=== PATIENT | female | born 1970 | race Caucasian/White ===

== ENCOUNTER 2019-11-08 12:19 | Emergency (ER) | payer SELFPAY ==
[2019-11-08 13:10] LABS: BASOPHILS # (AUTO) 0.1 10^3/uL (0.0-0.1); BASOPHILS % (AUTO) 0.9 %; EOSINOPHILS # (AUTO) 0.2 10^3/uL (0.0-0.7); EOSINOPHILS % (AUTO) 2.4 %; HGB - HEMOGLOBIN 14.5 g/dL (12.0-16.0); LYMPHOCYTES % (AUTO) 29.4 %; MEAN CORPUSCULAR HEMOGLOBIN 32.5 pg (27.0-31.0); MEAN CORPUSCULAR HGB CONC 33.8 g/dL (32.0-36.0); MEAN CORPUSCULAR VOLUME 96.2 fL (81.0-99.0); MEAN PLATELET VOLUME 12.1 fL (7.9-10.8); MONOCYTES # (AUTO) 0.5 10^3/uL (0.0-1.0); MONOCYTES % (AUTO) 8.1 %; NEUTROPHILS # (AUTO) 3.9 10^3/uL (1.5-6.6); NEUTROPHILS % (AUTO) 58.9 %; PLT - PLATELET COUNT 153 10^3/uL (130-450); RED BLOOD COUNT 4.46 10^6/uL (4.20-5.40); RED CELL DISTRIBUTION WIDTH 12.3 % (12.0-15.0); WHITE BLOOD COUNT 6.7 x10^3/uL (4.8-10.8)
[2019-11-08 13:11] LABS: BILIRUBIN,URINE NEGATIVE (NEGATIVE); GLUCOSE, URINE (UA) NEGATIVE (NEGATIVE); KETONES,URINE (UA) NEGATIVE (NEGATIVE); LEUKOCYTE ESTERASE, URINE NEGATIVE (NEGATIVE); NITRITE,URINE NEGATIVE (NEGATIVE); OCCULT BLOOD,URINE NEGATIVE (NEGATIVE); PROTEIN,URINE NEGATIVE (NEGATIVE); UROBILINOGEN,URINE 0.2 (NORMAL) E.U./dL (NORMAL)
[2019-11-08 13:17] LABS: CLARITY,URINE CLEAR (CLEAR)
--- NOTE | 2019-11-08 13:23 | ED Physician Documentation ---
PD HPI ABD PAIN - Stated complaint Stated Complaint: LT SIDE FLANK PX, ABD PX - Chief complaint Chief Complaint: Abd Pain - History obtained from History obtained from: Patient - History of Present Illness Timing - onset: How many months ago (5) Timing - details: Gradual onset, Still present, Waxing and waning Quality: Cramping, Aching, Sharp, Fullness/distended, Pain Location: RUQ Radiation: Right flank Improved by: Laying still Worsened by: Moving, Breathing, Position, Palpation Associated symptoms: Vomiting, Diarrhea. No: Fever Similar symptoms before: Has not had sx before Recently seen: Not recently seen - Additional information Additional information: 49-year-old female complains of pain in the right flank area that is been present since June of this year. She states she has had recurrence of symptoms that come and go and progressively have worsened. She is having trouble rolling over in bed at night she feels full inside but she is continuing to be able to eat and she has had normal bowel movements. She does recall 2 episodes of abdominal pain associated with all of this, that resolved after some diarrhea. She is currently not having symptoms of diarrhea or abdominal pain. She is not having nausea. She has tried some ibuprofen and some Tylenol which helps somewhat. She does a lot of heavy lifting at work and has had increase her hours recently. Review of Systems Constitutional: denies: Fever Eyes: denies: Decreased vision Ears: denies: Ear pain Nose: denies: Congestion Throat: denies: Sore throat Cardiac: denies: Chest pain / pressure, Palpitations Respiratory: denies: Dyspnea, Cough GI: reports: Abdominal Pain, Abdominal Swelling, Vomiting, Diarrhea : denies: Dysuria, Frequency Skin: denies: Rash Musculoskeletal: reports: Back pain. denies: Neck pain, Extremity pain PD PAST MEDICAL HISTORY - Past Medical History Cardiovascular: None Endocrine/Autoimmune: None - Past Surgical History Past Surgical History: No - Present Medications Home Medications: Ambulatory Orders Medication Instructions Recorded Confirmed Cephalexin [Keflex] 500 mg PO QID #40 capsule 10/26/15 Cyclobenzaprine [Flexeril] 10 mg PO TID PRN #20 tablet 11/08/19 Oxycodone HCl/Acetaminophen 1 - 2 each PO Q6H PRN #14 tablet 11/08/19 [Percocet 5-325 mg Tablet] - Allergies Allergies/Adverse Reactions: Allergies Allergy/AdvReac Type Severity Reaction Status Date / Time No Known Drug Allergies Allergy Verified 11/08/19 12:30 - Social History Does the pt smoke?: No Smoking Status: Never smoker Does the pt drink ETOH?: No ETOH Use: Wine Does the pt have substance abuse?: Yes Substance Use and Type: Marijuana - Immunizations Immunizations are current?: Yes - POLST Patient has POLST: No PD ED PE NORMAL - General General: Alert and oriented X 3, Well developed/nourished, Other (Appears angry and anxious ) - HEENT HEENT: Atraumatic, PERRL, EOMI - Neck Neck: Supple, no meningeal sign, No bony TTP - Cardiac Cardiac: RRR, No murmur - Respiratory Respiratory: No respiratory distress, Clear bilaterally - Abdomen Abdomen: Normal bowel sounds, Soft, No organomegaly, Other (There is RUQ pain to palpation as well as left flank pain to bimanual palpation of the right kidney as well as pain in the lattisimus extending from the lower ribs to the SI joint on the right. 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, No motor deficit, No sensory deficit, Normal speech Eye Opening: Spontaneous Motor: Obeys Commands Verbal: Oriented GCS Score: 15 - Psych Psych: Normal mood, Normal affect Results - Vitals Vitals: Vital Signs - 24 hr 11/08/19 11/08/19 11/08/19 12:22 12:46 14:25 Temperature 36.8 C Heart Rate 86 80 71 Respiratory 18 20 18 Rate Blood Pressure 152/100 H 137/84 H 129/90 H O2 Saturation 100 100 100 Oxygen O2 Source Room air - Labs Labs: Laboratory Tests 11/08/19 11/08/19 11/08/19 12:36 12:36 12:54 WBC 6.7 RBC 4.46 Hgb 14.5 Hct 42.9 MCV 96.2 MCH 32.5 H MCHC 33.8 RDW 12.3 Plt Count 153 MPV 12.1 H Neut # (Auto) 3.9 Lymph # (Auto) 2.0 [place] # (Auto) 0.5 Eos # (Auto) 0.2 Baso # (Auto) 0.1 Absolute Nucleated RBC 0.00 Nucleated RBC % 0.0 Sodium Potassium Chloride Carbon Dioxide Anion Gap BUN Creatinine Estimated GFR (MDRD) Glucose Calcium Total Bilirubin AST ALT Alkaline Phosphatase Total Protein Albumin Globulin Albumin/Globulin Ratio Lipase Urine Color YELLOW Urine Clarity CLEAR Urine pH 7.0 Ur Specific [place] 1.020 1.020 Urine Protein NEGATIVE Urine Glucose (UA) NEGATIVE Urine Ketones NEGATIVE Urine Occult Blood NEGATIVE Urine Nitrite NEGATIVE Urine Bilirubin NEGATIVE Urine Urobilinogen 0.2 (NORMAL) Ur Leukocyte Esterase NEGATIVE Ur Microscopic Review NOT INDICATED Urine Culture Comments NOT INDICATED Urine HCG, Qual NEGATIVE 11/08/19 12:54 WBC RBC Hgb Hct MCV MCH MCHC RDW Plt Count MPV Neut # (Auto) Lymph # (Auto) [place] # (Auto) Eos # (Auto) Baso # (Auto) Absolute Nucleated RBC Nucleated RBC % Sodium 135 Potassium 3.8 Chloride 100 L Carbon Dioxide 26 Anion Gap 9.0 BUN 9 Creatinine 0.7 Estimated GFR (MDRD) 90 Glucose 103 H Calcium 9.0 Total Bilirubin 1.1 H AST 26 ALT 27 Alkaline Phosphatase 54 Total Protein 7.6 Albumin 4.1 Globulin 3.5 Albumin/Globulin Ratio 1.2 Lipase 21 L Urine Color Urine Clarity Urine pH Ur Specific [place] Urine Protein Urine Glucose (UA) Urine Ketones Urine Occult Blood Urine Nitrite Urine Bilirubin Urine Urobilinogen Ur Leukocyte Esterase Ur Microscopic Review Urine Culture Comments Urine HCG, Qual - Rads (name of study) CT ab/pel w Radiology: Prelim report reviewed (Impression: 1. Appendix is unremarkable. 2. No visualized nephro or ureteral lithiasis. 3. No visualized inflammatory change within the abdomen or pelvis.), EMP read indepedently, See rad report Procedures - Bedside sono Bedside sono by EMP: With use of bedside ultrasound the gallbladder is imaged there are no obvious stones the wall is not thickened and there is no pericholecystic fluid. The general area is tender to sonographic palpation. Examination of the right kidney is unsatisfactory secondary to body habitus and motion artifact - IVC sono (time) 1320 Bedside IVC sono: IVC measures (cm) (1.67), IVC collapsed c insp (cm) (1.09), Euvolemia PD MEDICAL DECISION MAKING - ED course Complexity details: reviewed results, re-evaluated patient, considered differential, d/w patient ED course: 49-year-old female with months of right flank pain related to movement has no abnormalities on her CT scan, blood work or urinalysis.The patient is treated here in the emergency department with 10 mg of dexamethasone and 30 mg of Toradol intravenously and she has some good relief of her flank pain. She is moving about on the bed much more easily. I have reassured the patient there is nothing diaboic going on inside of the abdomen and this should resolve with ice stretch and time and may require physical therapy Departure - Departure Disposition: 01 Home, Self Care Clinical Impression: Flank pain, Spasm of muscle, back Condition: Stable Instructions: ED Strain Abdominal Muscle, ED Spasm Back No Trauma Follow-Up: [facility] [Provider Group] Prescriptions: Cyclobenzaprine [Flexeril] 10 mg PO TID PRN #20 tablet PRN Reason: Spasms Oxycodone HCl/Acetaminophen [Percocet 5-325 mg Tablet] 1 - 2 each PO Q6H PRN #14 tablet PRN Reason: pain
[2019-11-08 13:27] LABS: ALBUMIN 4.1 g/dL (3.2-5.5); ALBUMIN/GLOBULIN RATIO 1.2 (1.0-2.2); BILIRUBIN,TOTAL 1.1 mg/dL (0.2-1.0); CREATININE 0.7 mg/dL (0.4-1.0); TOTAL PROTEIN 7.6 g/dL (6.7-8.2)
[2019-11-08] MEDS ORDERED: DEXAMETHASONE 10 MG/ML VIAL IVP STA (13:30)
[2019-11-08] MEDS ORDERED: KETOROLAC 30 MG/ML VIAL IVP STA (13:30)
[2019-11-08 13:42] LABS: HCG UR QUAL NEGATIVE
[2019-11-08] MEDS ORDERED: IOVERSOL 320 100 ML VIAL IVP ONE ×2 (13:59→15:28)
--- NOTE | 2019-11-08 14:29 | CT Report ---
PROCEDURE: Abdomen/Pelvis W INDICATIONS: RIGHT FLANK PAIN CONTRAST: IV CONTRAST: Optiray 320 ml: 100 PO CONTRAST: *NO PO CONTRAST TECHNIQUE: After the administration of IV contrast, 5 mm thick sections acquired from the diaphragms to the symp hysis. 5 mm thick coronal and sagittal reformats were acquired. For radiation dose reduction, the f ollowing was used: automated exposure control, adjustment of mA and/or kV according to patient size. COMPARISON: None. FINDINGS: Image quality: Excellent. ABDOMEN: Lung bases: Lung bases are clear. Heart size is normal. Solid organs: Liver is borderline enlarged with steatosis. The spleen is normal in size and enhancem ent. Gallbladder is unremarkable Biliary system is non dilated. Pancreas enhances normally. No ad renal nodules. Kidneys demonstrate normal size and enhancement, without hydronephrosis. Peritoneum and bowel: Bowel loops demonstrate normal wall thickness and caliber. No free fluid or a ir. Appendix is unremarkable. Nodes and vessels: No retroperitoneal or mesenteric adenopathy by size criteria. Aorta and inferior vena cava are normal in size. Miscellaneous: No ventral hernias. PELVIS: Genitourinary: Bladder wall thickness is normal. Miscellaneous: No inguinal hernias or adenopathy. Bones: No suspicious bony lesions. No vertebral body compression fractures. IMPRESSION: 1. Appendix is unremarkable. 2. No visualized nephro or ureterolithiasis. 3. No visualized inflammatory change within the abdomen or pelvis. Reviewed by: Frances Persaud MD on 11/08/2019 2:27 PM PDT Approved by: Frances Persaud MD on 11/08/2019 2:27 PM PDT Station ID: [id number]
[2019-11-08 15:39] VITALS: BP 153/90
== END 2019-11-08 15:41 | disposition home or self-care (01) ==
LOC: ED 12:19
DX: R10.11 Right upper quadrant pain (principal); M62.830 Muscle spasm of back
CPT/HCPCS: 36415; 74177; 80053; 81003; 81025; 83690; 85025; 96374; 99284; Q9967; 81001; 87086

== ENCOUNTER 2021-02-12 16:04 | Outpatient (CLI) | payer BC ==
--- NOTE | 2021-02-12 16:33 | XRAY Report ---
PROCEDURE: Cervical Spine 2 View INDICATIONS: CERVICALGIA TECHNIQUE: 4 view(s) of the cervical spine were acquired. COMPARISON: None. FINDINGS: C-SPINE: No acute, displaced fracture or malalignment. Minimal grade 1 anterolisthesis at C3-4. The v ertebral body heights are maintained. Mild disc height loss at C4-5. Anterior endplate osteophytosis. SOFT TISSUES: No prevertebral soft tissue thickening. IMPRESSION: 1.No acute osseous abnormality of the cervical spine. Reviewed by: Bay Bertrand MD on 02/12/2021 4:31 PM [facility] Approved by: Bay Bertrand MD on 02/12/2021 4:31 PM [facility] Station ID: [id number]
== END 2021-02-12 16:05 | disposition home or self-care (01) ==
LOC: DI.S 16:04
PROVIDERS: ATTEND Internal Medicine
DX: M54.2 Cervicalgia (principal)

== ENCOUNTER 2021-04-14 08:00 | Outpatient (CLI) | payer OTHER, BC | END 2021-04-14 23:59 | LOC: LAB.S 08:00 | PROVIDERS: ATTEND Physician Assistant | DX: J06.9 Acute upper respiratory infection, unspecified (principal); Z20.822 Contact with and (suspected) exposure to COVID-19 ==

== ENCOUNTER 2021-04-28 12:54 | Emergency (ER) | payer BC, OTHER ==
[2021-04-28 13:06] VITALS: BP 138/97
[2021-04-28] MEDS ORDERED: cefTRIAXone 1 GM VIAL IM STA (13:46)
--- NOTE | 2021-04-28 13:50 | ED Physician Documentation ---
History of Present Illness - Stated complaint Stated Complaint: RT SIDE MOUTH SWELLING - Chief complaint Chief Complaint: Heent - History obtained from History obtained from: Patient - History of Present Illness Timing: How many weeks ago (1) Pain level max: 7 Pain level now: 6 - Additonal information Additional information: Patient is a 50-year-old female with right-sided upper dental pain. Ongoing for the past week. She was seen recently at the walk-in clinic and started on amoxicillin. She states that she is not improving. She has not yet contacted a dentist for an appointment. Worse with eating and drinking. Nothing makes it better. She is on naltrexone to help with alcohol cravings at home. Review of Systems Constitutional: denies: Fever, Chills Respiratory: denies: Cough GI: denies: Nausea, Vomiting, Diarrhea : denies: Dysuria, Now EGA Skin: denies: Rash PD PAST MEDICAL HISTORY - Past Medical History Past Medical History: Yes Cardiovascular: None Endocrine/Autoimmune: None Psych: Anxiety - Past Surgical History Past Surgical History: No - Present Medications Home Medications: Ambulatory Orders Medication Instructions Recorded Confirmed Amoxicillin 500 mg PO TID 04/28/21 04/28/21 Meloxicam [Mobic] 7.5 mg PO BID PRN #20 tablet 04/28/21 Naltrexone HCl 50 mg PO DAILY 04/28/21 04/28/21 Venlafaxine HCl [Effexor Xr] 150 mg PO DAILY 04/28/21 04/28/21 clindamycin HCL [Cleocin HCl] 300 mg PO Q6H #40 cap 04/28/21 - Allergies Allergies/Adverse Reactions: Allergies Allergy/AdvReac Type Severity Reaction Status Date / Time No Known Drug Allergies Allergy Verified 11/08/19 12:30 - Social History Does the pt smoke?: No Smoking Status: Never smoker Does the pt drink ETOH?: No Does the pt have substance abuse?: Yes - Immunizations Immunizations are current?: Yes - POLST Patient has POLST: No PD ED PE NORMAL - Vitals Vital signs reviewed: Yes - General General: Alert and oriented X 3, No acute distress, Well developed/nourished - HEENT HEENT: PERRL, Moist mucous membranes, Other (Diffuse dental caries, tender palpation right upper molar. No drainable abscess. No facial swelling. Normal phonation. No trismus) - Neck Neck: Supple, no meningeal sign, No adenopathy - Cardiac Cardiac: RRR, No murmur - Respiratory Respiratory: No respiratory distress, Clear bilaterally - Derm Derm: Warm and dry - Neuro Neuro: Alert and oriented X 3 - Psych Psych: Normal mood, Normal affect Results - Vitals Vitals: Vital Signs - 24 hr 04/28/21 12:59 Temperature 36.3 C L Heart Rate 95 Respiratory 16 Rate Blood Pressure 138/97 H O2 Saturation 99 Oxygen O2 Source Room air PD MEDICAL DECISION MAKING - ED course Complexity details: considered differential, d/w patient ED course: 50-year-old female with dental caries. We will change her antibiotic and see if this helps her. She is unable to take any narcotic pain medication secondary to the naltrexone. We will trial her on meloxicam. No drainable abscess. Recommend that she follow-up closely with a dentist. Given a dose of IM Rocephin here Patient counseled regarding signs and symptoms for which I believe and urgent re-evaluation would be necessary. Patient with good understanding of and agreement to plan and is comfortable going home at this time This document was made in part using voice recognition software. While efforts are made to proofread this document, sound alike and grammatical errors may occur. Departure - Departure Disposition: 01 Home, Self Care Clinical Impression: Dental caries Condition: Good Instructions: ED Cavity Dental Follow-Up: your,dentist this week [Other] Prescriptions: clindamycin HCL [Cleocin HCl] 300 mg PO Q6H #40 cap Meloxicam [Mobic] 7.5 mg PO BID PRN #20 tablet PRN Reason: Pain Comments: Take all antibiotics until gone. You need to follow-up with a dentist as soon as possible to have your tooth evaluated. Do not wait to make an appointment. Return if you worsen. [facility] Discharge Date/Time: 04/28/21 14:33
[2021-04-28] MEDS ORDERED: lidocaine 1% 20 ML MDV SUBQ ONE (13:53)
[2021-04-28] MEDS ORDERED: LIDOCAINE-MPF 1% 5 ML VIAL SUBQ ONE (15:00)
== END 2021-04-28 14:33 | disposition home or self-care (01) ==
LOC: ED 12:54
DX: K02.9 Dental caries, unspecified (principal)
CPT/HCPCS: 96372; 99282; 99283